=== PATIENT | male | born 1970 | race Caucasian/White ===

== ENCOUNTER 2018-10-25 06:40 | Day surgery (SDC) | payer OTHER ==
[~2018-10-25] VITALS: Ht 185.4 cm; Wt 116.0 kg
[~2018-10-25 06:40] MED LIST: SODIUM CHLORIDE 0.9% 1,000 ML IV ONE
[2018-10-25] MEDS ORDERED: LIDOCAINE 2% 30 ML JELLY TP ONE (06:41)
[2018-10-25] MEDS ORDERED: BENZOCAINE 20% 50 MCG/SPRAY 57 GM TP ONE (06:41)
[2018-10-25] MEDS ORDERED: LIDOCAINE 4% 50 ML SOLUTION TP ONE (06:41)
[2018-10-25] MEDS ORDERED: ALBUTEROL SULFATE 2.5 MG/0.5 ML NEB SOLUTION NEB ONE (06:41)
[2018-10-25] MEDS ORDERED: MONT10TA21 PO (07:23)
[2018-10-25] MEDS ORDERED: FINA5TAB41 PO (07:23)
[2018-10-25] MEDS ORDERED: LISI-662 PO (07:23)
[2018-10-25] MEDS ORDERED: PRED10 PO (07:23)
[2018-10-25] MEDS ORDERED: ESCI20TA PO (07:23)
[2018-10-25] MEDS ORDERED: LISI1TAB11 PO (07:23)
[2018-10-25] MEDS ORDERED: AMLO-511 PO (07:23)
[2018-10-25] MEDS ORDERED: BUPR-93 PO (07:23)
[2018-10-25] MEDS ORDERED: FENO43CA5 PO (07:23)
[2018-10-25] MEDS ORDERED: TRAZ-220 PO (07:23)
[2018-10-25] MEDS ORDERED: MIDAZOLAM HCL 2 MG/2 ML VIAL ONE (08:04)
[2018-10-25] MEDS ORDERED: FentaNYL CITRATE-PF 100 MCG/2 ML VIAL ONE (08:04)
[2018-10-25] MEDS ORDERED: MethylPREDNISolone SOD SUCC 125 MG/2 ML VIAL IVP ONE (09:30)
[2018-10-25] MEDS ORDERED: MethylPREDNISolone SOD SUCC 125 MG/2 ML VIAL ONE (09:55)
[2018-10-25] MEDS ORDERED: OXYGEN THERAPY IH SCH (20:00)
== END 2018-10-25 10:55 | disposition home or self-care (01) ==
LOC: SURGERY 06:40
PROVIDERS: ATTEND Internal Medicine Critical Care Medicine
DX: J38.4 Edema of larynx (principal); B37.0 Candidal stomatitis; I10 Essential (primary) hypertension; K21.9 Gastro-esophageal reflux disease without esophagitis; Z72.89 Other problems related to lifestyle; Z98.890 Other specified postprocedural states; Z87.01 Personal history of pneumonia (recurrent); Z79.899 Other long term (current) drug therapy
CPT/HCPCS: 31623; 31624; 71045; 87015; 87070; 87101; 87206; 87220; 88108; 88312; J2250; J2930; J3010; J7030